=== PATIENT | male | born 1995 | race Caucasian/White ===

== ENCOUNTER 2016-04-19 01:02 | Emergency (ER) | payer BC ==
[~2016-04-19] VITALS: Ht 185.4 cm; Wt 93.2 kg
[~2016-04-19 01:02] MED LIST: CLEOCIN HCL300 MG PO; FLONASE NASAL S16 GM NS; NO HOME MEDICATIONS; NORCO 325 MG-51 TAB PO; VYVANSE30 MG PO; ZYRTEC 10MG10 MG PO
[2016-04-19 01:06] VITALS: TEMP 97.1
[2016-04-19] MEDS ORDERED: EPIPEN 2-PAK1 MG/ML IM (01:13)
[2016-04-19] MEDS ORDERED: PREDNISONE20 MG PO (01:13)
[2016-04-19 02:34] VITALS: BP 122/71; PULSE 100
== END 2016-04-19 02:34 | disposition home or self-care (01) ==
LOC: COL.ER 01:02
DX: T78.49XA Other allergy, initial encounter (principal); R21 Rash and other nonspecific skin eruption; R06.02 Shortness of breath
CPT/HCPCS: J0171; J1200; J2930